=== PATIENT | male | born 1995 | race African-American/Black ===

== ENCOUNTER 2018-11-22 06:21 | Emergency (ER) | payer BC ==
[~2018-11-22] VITALS: Ht 185.4 cm; Wt 86.2 kg
[2018-11-22 06:30] VITALS: BP 121/76
[2018-11-22] MEDS ORDERED: [UNRECOGNIZED DRUG - OTHER] (06:40)
[2018-11-22] MEDS ORDERED: nyquil (06:40)
[2018-11-22] MEDS ORDERED: prednisoLONE SOD PHOSPHATE 15 MG/5 ML SOLUTION PO ONE (06:45)
[2018-11-22] MEDS ORDERED: DEXAMETHASONE SOD PHOS 10 MG/ML VIAL PO ONE (06:45)
[2018-11-22] MEDS ORDERED: IBUPROFEN 100 MG/5 ML ORAL.SUSP. PO ONE (06:45)
[2018-11-22] MEDS ORDERED: AMOXICILLIN 250MG/5ML 80 ML BULK BOTTLE ORAL.SUSP STARTER PACK. ONE (06:47)
[2018-11-22] MEDS ORDERED: IBUP100O25 PO (06:50)
[2018-11-22] MEDS ORDERED: AMOX400S2 PO (06:50)
--- NOTE | 2018-11-22 06:50 | PHYS DOC ---
Past History Past Medical History: No Pertinent History Past Surgical History: Other Additional Past Surgical Histo: hernia Smoking: Non-smoker Alcohol Use: None Drug Use: None Adult General Chief Complaint Chief Complaint: SORE THROAT HPI HPI Patient is a 23-year-old male presents with sore throat. This started approximately 2 days ago and has been getting worse over time. Has noted a subjective fever. He is visiting family in [place], he normally lives in [facility]. No recent sick contacts. He denies any leg pain or swell ing. He drove here from [place]. Notes some nasal congestion. Nothing seems to make the symptoms better, and has been getting worse with swallowing. No difficulty breathing. No neck pain or stiffness. Mild headache. Symptoms are moderate to severe in intensity. No relief with [id number] medicines.[] Review of Systems Review of Systems Constitutional: Denies chills [] Eyes: Denies change in visual acuity, redness, or eye pain [] HENT: Denies nasal congestion, see history of present illness[] Respiratory: Denies cough or shortness of breath [] Cardiovascular: No additional information not addressed in HPI [] GI: Denies abdominal pain, nausea, vomiting, bloody stools or diarrhea [] : Denies dysuria or hematuria [] Musculoskeletal: Denies back pain or joint pain [] Integument: Denies rash or skin lesions [] Neurologic: Denies worst headache of life, focal weakness or sensory changes [] Endocrine: Denies polyuria or polydipsia [] All other systems were reviewed and found to be within normal limits, except as documented in this note. Physical Exam Physical Exam Constitutional: Well developed, well nourished, no acute distress, non-toxic appearance. [] HENT: Normocephalic, atraumatic, bilateral external ears normal, oropharynx moist, uvula is midline, tonsils are enlarged with exudates, nose normal. [] Eyes: PERRLA, EOMI, conjunctiva normal, no discharge. [] Neck: Normal range of motion, no tenderness, supple, no stridor. [] Cardiovascular:Heart rate regular rhythm, no murmur [] Lungs & Thorax: Bilateral breath sounds clear to auscultation [] Abdomen: Bowel sounds normal, soft, no tenderness, no masses, no pulsatile masses. [] Skin: Warm, dry, no erythema, no rash. [] Back: No tenderness, no CVA tenderness. [] Extremities: No tenderness, no cyanosis, no clubbing, ROM intact, no edema. [] Neurologic: Alert and oriented X 3, normal motor function, normal sensory function, no focal deficits noted. [] Psychologic: Affect normal, judgement normal, mood normal. [] EKG EKG [] Radiology/Procedures Radiology/Procedures [] Course & Med Decision Making Course & Med Decision Making Pertinent Labs and Imaging studies reviewed. (See chart for details) Medical decision making: Patient appears to have an exudative pharyngitis. We'll give him liquid oral medicines since swallowing is more painful. Giving an initial dose of Decadron. No evidence of peritonsillar abscess nor meningitis. No evidence of a retropharyngeal abscess.[] Dragon Disclaimer Dragon Disclaimer This electronic medical record was generated, in whole or in part, using a voice recognition dictation system. Departure Departure: Impression: Primary Impression: Exudative pharyngitis Disposition: HOME, SELF-CARE Condition: IMPROVED Referrals: PCPOMARI (PCP) Patient Instructions: Viral and Bacterial Pharyngitis Additional Instructions: Drink plenty of fluids. Follow-up with your regular doctor in 2 days. If you do not have regular doctor list of local clinics will be provided for you. Return to the ER if worsening difficulty swallowing, difficulty breathing, or any other concerns. Scripts Amoxicillin (AMOXICILLIN) 400 Mg/5 Ml Susp.recon 10 ML PO BID for pharyngitis, #200 ML Prov: MAHAD MARCOS DO 11/22/18 Ibuprofen (IBUPROFEN) 100 Mg/5 Ml Oral.susp 400 MG PO Q6-8HRS PRN for pain/fever, #120 LIQUID Prov: MAHAD MARCOS DO 11/22/18 MAHAD MARCOS DO Nov 22, 2018 06:50
[2018-11-22] MEDS ORDERED: AMOXICILLIN 250MG/5ML 80 ML BULK BOTTLE ORAL.SUSP STARTER PACK. PO ONE (07:00)
== END 2018-11-22 06:57 | disposition home or self-care (01) ==
LOC: ER 06:21
DX: J02.9 Acute pharyngitis, unspecified (principal); R51 Headache
CPT/HCPCS: 99284; J1100